=== PATIENT | male | born 1965 | race American Indian/Alaskan Native ===

== ENCOUNTER 2017-07-05 07:50 | Emergency (ER) | payer SELFPAY ==
--- NOTE | 2017-07-05 10:05 | Emergency Department Report ---
HPI - General Chief Complaint: High BP Time Seen by Provider: 07/05/17 09:55 - HPI HPI: 52-year-old -[place] Citizen male comes in for states that his blood pressures is high. Patient reports that his blood pressure was elevated on Wednesday when he first noticed it. He denies any headaches no change in vision no chest pain no nausea no vomiting no fever no chills. His blood pressure in triage is 152/ 90 patient also denies any shortness of breathing. He has no past medical history currently takes no medications and has no known drug allergies ED Past Medical Hx - Past Medical History Previous Medical History?: No - Surgical History Past Surgical History?: No - Social History Smoking Status: Never Smoker Substance Use Type: Alcohol - Medications Home Medications: Home Medications Medication Instructions Recorded Confirmed Last Taken Type Lisinopril [Zestril] 10 mg PO QDAY 30 Days #30 tablet 07/05/17 Unknown Rx ED Review of Systems ROS: Stated complaint: HYPERTENSIVE Other details as noted in HPI Physical Exam - Physical Exam Vital Signs: Vital Signs 07/05/17 08:48 Temperature 98.3 F Pulse Rate 60 Respiratory 16 Rate Blood Pressure 152/90 O2 Sat by Pulse 98 Oximetry Physical Exam: GENERAL APPEARANCE: Well developed, well nourished, in no acute distress. SKIN: Inspection of the skin reveals no rashes, ulcerations or petechiae. HEENT: The sclerae were anicteric and conjunctivae were pink and moist. Extraocular movements were intact and pupils were equal, round, and reactive to light with normal accommodation. External inspection of the ears and nose showed no scars, lesions, or masses. Lips, teeth, and gums showed normal mucosa. The oral mucosa, hard and soft palate, tongue and posterior pharynx were normal. NECK: Supple and symmetric. There was no thyroid enlargement, and no tenderness , or masses were felt. CHEST: Normal AP diameter and normal contour without any kyphoscoliosis. LUNGS: Auscultation of the lungs revealed normal breath sounds without any other adventitious sounds or rubs. CARDIOVASCULAR: There was a regular rate and rhythm without any murmurs, gallops , rubs. The carotid pulses were normal and 2+ bilaterally without bruits. Peripheral pulses were 2+ and symmetric. ABDOMEN: Soft and nontender with normal bowel sounds. The liver span was approximately 5-6 cm in the right midclavicular line by percussion. The liver edge was nontender. The spleen was not palpable. There were no inguinal or umbilical hernias noted. No ascites was noted. LYMPH NODES: No lymphadenopathy was appreciated in the neck, axillae or groin. MUSCULOSKELETAL: Gait was normal. There was no tenderness or effusions noted. Muscle strength and tone were normal. EXTREMITIES: No cyanosis, clubbing or edema. NEUROLOGIC: Alert and oriented x 3. Normal affect. Gait was normal. Normal deep tendon reflexes with no pathological reflexes. Sensation to touch was normal. ED Course Vital Signs 07/05/17 08:48 Temperature 98.3 F Pulse Rate 60 Respiratory 16 Rate Blood Pressure 152/90 O2 Sat by Pulse 98 Oximetry ED Medical Decision Making - Lab Data Result diagrams: 07/05/17 10:13 07/05/17 10:13 - Medical Decision Making Patient has been evaluated by this provider fast track. Discussed the patient will get a baseline labs the CBC CMP. His kidney functions are stable and has no other reason for elevation of blood pressure we will start patient on a low- dose of lisinopril 10 mg daily and have him follow-up with his primary care provider. Patient verbalized understanding. Critical care attestation.: If time is entered above; I have spent that time in minutes in the direct care of this critically ill patient, excluding procedure time. ED Disposition Clinical Impression: Elevated glucose Hypertension Qualifiers: Hypertension type: unspecified Qualified Code(s): I10 - Essential (primary) hypertension Disposition: DC-01 TO HOME OR SELFCARE Is pt being admited?: No Does the pt Need Aspirin: No Condition: Stable Instructions: Hypertension (ED), DASH Eating Plan (ED) Additional Instructions: Please take the lisinopril 10 mg continue to monitor blood pressure is very important free to follow up with your primary care doctor this week. Be aware that her blood sugar with a little elevated so he did need further evaluation which all come be done by her primary care provider. Prescriptions: Lisinopril [Zestril] 10 mg PO QDAY 30 Days #30 tablet Referrals: PRIMARY CARE, [Primary Care Provider] - 3-5 Days Forms: Work/School Release Form(ED)
[2017-07-05 10:28] LABS: Basophils % (Auto) 0.2 % (0.0-1.8); Eosinophils # (Auto) 0.1 K/mm3 (0.0-0.4); Eosinophils % (Auto) 0.7 % (0.0-4.3); Hematocrit 42.8 % (35.5-45.6); Hemoglobin 14.6 gm/dl (11.8-15.2); Lymphocytes # (Auto) 1.7 K/mm3 (1.2-5.4); Lymphocytes % (Auto) 23.9 % (13.4-35.0); Mean Corpuscular HGB Conc 34 % (32-34); Mean Corpuscular Hemoglobin 32 pg (28-32); Mean Corpuscular Volume 93 fl (84-94); Monocytes # (Auto) 0.4 K/mm3 (0.0-0.8); Monocytes % (Auto) 6.1 % (0.0-7.3); Platelet Count 144 K/mm3 (140-440); Red Cell Distribution Width 13.1 % (13.2-15.2)
[2017-07-05 10:45] LABS: Alanine Aminotransferase 23 units/L (7-56); Albumin 4.6 g/dL (3.9-5); BUN/Creatinine Ratio 13; Blood Urea Nitrogen 14 mg/dL (9-20); Calcium 9.3 mg/dL (8.4-10.2); Hemolysis Index 11
[2017-07-05 11:01] VITALS: BP 168/110
== END 2017-07-05 11:01 | disposition home or self-care (01) ==
LOC: ED 07:50
DX: I10 Essential (primary) hypertension (principal); R73.01 Impaired fasting glucose
CPT/HCPCS: 36415; 80053; 85025; 99283

== ENCOUNTER 2019-02-23 21:31 | Emergency (ER) | payer BC ==
[2019-02-23 21:36] VITALS: BP 152/100
--- NOTE | 2019-02-23 21:53 | Event Note ---
ED Screening Note Date of service: 02/23/19 Time: 21:49 ED Screening Note: This is a 53 y.o. M. that presents to the ER with N/D and fever x 2 days. Reports eating a burger at [employer] 2 days ago and sick every since. Reports fever and abdominal pain resolved. + diarrhea Taking pepto bismol. PMH of HTN This initial assessment/diagnostic orders/clinical plan/treatment(s) is/are subject to change based on patients health status, clinical progression and re- assessment by fellow clinical providers in the ED. Further treatment and workup at subsequent clinical providers discretion. Patient/guardian urged not to elope from the ED as their condition may be serious if not clinically assessed and managed. Initial orders include:
[2019-02-23 22:14] LABS: Hemoglobin 15.1 gm/dl (11.8-15.2); Mean Corpuscular HGB Conc 33 % (32-34); Mean Corpuscular Volume 94 fl (84-94); Platelet Count 130 K/mm3 (140-440); Red Blood Count 4.89 M/mm3 (3.65-5.03); Red Cell Distribution Width 13.2 % (13.2-15.2)
[2019-02-23 22:38] LABS: Alanine Aminotransferase 47 units/L (7-56); Albumin 4.4 g/dL (3.9-5); BUN/Creatinine Ratio 11; Blood Urea Nitrogen 14 mg/dL (9-20); Calcium 9.2 mg/dL (8.4-10.2); Hemolysis Index 5
--- NOTE | 2019-02-23 23:19 | Emergency Department Report ---
Vomiting/Diarrhea - HPI Chief Complaint: Nausea/Vomiting/Diarrhea Stated Complaint: DIARRHEA, NAUSEA X'S 2 DAYS Time Seen by Provider: 02/23/19 21:49 Duration: 2 Days Diarrhea Severity: Moderate Pain Severity: None Symptoms: Yes Watery Diarrhea, Yes Fever, Yes Able to Tolerate Fluids, Yes Recent Unusual Foods ([employer]), No Bloody diarrhea, No Recent use of Antibiotics, No Family w/ Similar Symptoms, No Contacts w/ Similar Symptoms, No Rash, No Hematuria, No Recent URI Symptoms Other History: 53-year-old -[place] male presents to the emergency room complaining of diarrhea and fever 2 days. Patient denies any abdominal pain. Patient reports that his last loose stool was prior to arrival. Patient has taken nothing for his symptoms. Patient reports that he had [employer] the other day and after that he started having nausea and diarrhea. Patient denies any nausea at this time. Patient reports he needs a refill on his amlodipine 10 mg. ED Review of Systems ROS: Stated complaint: DIARRHEA, NAUSEA X'S 2 DAYS Other details as noted in HPI Comment: All other systems reviewed and negative Gastrointestinal: diarrhea ED Past Medical Hx - Past Medical History Previous Medical History?: Yes Hx Hypertension: Yes - Surgical History Past Surgical History?: No - Social History Smoking Status: Never Smoker Substance Use Type: None - Medications Home Medications: Home Medications Medication Instructions Recorded Confirmed Last Taken Type Loperamide [Imodium] 2 mg PO Q2HR PRN #4 capsule 02/23/19 Unknown Rx Losartan [Cozaar] 50 mg PO QDAY 2 Days #30 tablet 02/23/19 Unknown Rx amLODIPine [Norvasc] 10 mg PO DAILY 02/23/19 02/23/19 Unknown History amLODIPine [Norvasc] 10 mg PO DAILY #30 tab 02/23/19 Unknown Rx Vomiting Diarrhea Exam - Exam General: Vital signs noted. No distress. Alert and acting appropriately. HEENT: Yes Moist Mucous Membranes, No Pharyngeal Erythema, No Pharyngeal Exudates, No Rhinorrhea, No Conjuctival Injection, No Frontal Tenderness, No Maxillary Tenderness Neck: No Adenopathy, No Rigidity Lungs: Yes Clear Lung Sounds, Yes Good Air Exchange, No Wheezes, No Stridor, No Cough, No Nasal Flaring, No Retractions, No Use of Accessory Muscles Heart exam: Regular: Yes, Murmur: No, Tachycardia: No Abdomen: Tenderness: No, Peritoneal Signs: No, Distention: No, Hyperactive Bowel sounds: No Skin exam: Rash: No, Edema: No, Normal turgor: Yes Neurologic: Alert and oriented, no deficits. Musculoskeletal: Unremarkable. ED Course Vital Signs 02/23/19 21:35 Temperature 98.3 F Pulse Rate 91 H Respiratory 18 Rate Blood Pressure 152/100 O2 Sat by Pulse 96 Oximetry ED Medical Decision Making - Lab Data Result diagrams: 02/23/19 22:01 02/23/19 22:01 - Medical Decision Making 53-year-old -[place] male presents to the emergency room complaining of diarrhea and fever 2 days. Patient denies any abdominal pain. Patient reports that his last loose stool was prior to arrival. Patient has taken nothing for his symptoms. Patient reports that he had [employer] the other day and after that he started having nausea and diarrhea. Patient denies any nausea at this time. Patient reports he needs a refill on his amlodipine 10 mg. Patient will be given Imodium 2 mg now Critical care attestation.: If time is entered above; I have spent that time in minutes in the direct care of this critically ill patient, excluding procedure time. ED Disposition Clinical Impression: Diarrhea Qualifiers: Diarrhea type: unspecified type Qualified Code(s): R19.7 - Diarrhea, unspecified HTN (hypertension) Qualifiers: Hypertension type: essential hypertension Qualified Code(s): I10 - Essential (primary) hypertension Disposition: TO HOME OR SELFCARE Is pt being admited?: No Does the pt Need Aspirin: No Condition: Stable Instructions: Loperamide (By mouth), Acute Diarrhea (ED), Hypertension (ED) Prescriptions: Losartan [Cozaar] 50 mg PO QDAY 2 Days #30 tablet Loperamide [Imodium] 2 mg PO Q2HR PRN #4 capsule PRN Reason: Diarrhea amLODIPine [Norvasc] 10 mg PO DAILY #30 tab Referrals: JAVAD PRECIADO MD [Staff Physician] - 3-5 Days Forms: Work/School Release Form(ED)
[2019-02-23] MEDS ORDERED: LOPERAMIDE 2 MG CAP PO ONE (23:43)
== END 2019-02-24 00:05 | disposition home or self-care (01) ==
LOC: ED 21:31
DX: R19.7 Diarrhea, unspecified (principal); R50.9 Fever, unspecified; R11.0 Nausea; I10 Essential (primary) hypertension; Z79.899 Other long term (current) drug therapy
CPT/HCPCS: 36415; 80053; 85027

== ENCOUNTER 2019-04-24 16:01 | Emergency (ER) | payer OTHER, BC ==
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
[2019-04-24] MEDS ORDERED: HYDROcodone/ACETAMINOPHEN 7.5-325MG TAB PO ONE (20:39)
[2019-04-24] MEDS ORDERED: HYDROcodone/ACETAMINOPHEN 7.5-325MG TAB ONE (20:41)
[2019-04-24 21:19] LABS: Alanine Aminotransferase 38 units/L (7-56); BUN/Creatinine Ratio 11; Blood Urea Nitrogen 12 mg/dL (9-20); Calcium 10.4 mg/dL (8.4-10.2); Hemolysis Index 10
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
[2019-04-24 23:58] VITALS: BP 143/105
== END 2019-04-24 23:55 | disposition home or self-care (01) ==
LOC: ED 16:01
DX: S20.219A Contusion of unspecified front wall of thorax, initial encounter (principal); V49.9XXA Car occupant (driver) (passenger) injured in unspecified traffic accident, initial encounter; Y93.89 Activity, other specified; Y92.410 Unspecified street and highway as the place of occurrence of the external cause; Y99.8 Other external cause status
CPT/HCPCS: 36415; 71275; 80053; 99284; Q9967

== ENCOUNTER 2020-03-21 10:45 | Emergency (ER) | payer BC | END 2020-03-21 10:46 | disposition left against medical advice (07) | LOC: ED 10:45 | DX: I10 Essential (primary) hypertension (principal); Z53.21 Procedure and treatment not carried out due to patient leaving prior to being seen by health care provider ==

== ENCOUNTER 2020-03-21 13:25 | Emergency (ER) | payer BC ==
[2020-03-21 13:50] VITALS: BP 166/98
--- NOTE | 2020-03-21 16:12 | Emergency Department Report ---
ED General Adult HPI - General Chief complaint: Extremity Injury, Lower Stated complaint: HYPERTENSIVE Time Seen by Provider: 03/21/20 16:09 Source: patient Mode of arrival: Ambulatory Limitations: No Limitations - History of Present Illness Initial comments: Patient is a 54-year-old male presents emergency room with complaints of elevated blood pressure that began yesterday. He states that he has not taken his blood pressure medication since April 2019. He states that he just had a feeling that his blood pressure was elevated. He denies any headache, vision changes, numbness, weakness, chest pain, shortness of breath, tingling. He denies any other past medical history. He states he supposed to be taking amlodipine 10 mg daily. He denies any other past medical history. No allergies medications. He states that he went on vacation and drank more than he usually does and believes that is what set off his blood pressure. Severity scale (0 -10): 4 - Related Data Home Medications Medication Instructions Recorded Confirmed Last Taken amLODIPine 10 mg PO DAILY 02/23/19 02/23/19 Unknown Previous Rx's Medication Instructions Recorded Last Taken Type Loperamide [Imodium] 2 mg PO Q2HR PRN #4 capsule 02/23/19 Unknown Rx Losartan [Cozaar] 50 mg PO QDAY 2 Days #30 tablet 02/23/19 Unknown Rx amLODIPine 10 mg PO DAILY #30 tab 02/23/19 Unknown Rx Ibuprofen [Motrin 800 MG tab] 800 mg PO Q8HR PRN #30 tablet 04/24/19 Unknown Rx amLODIPine 10 mg PO DAILY #30 tablet 03/21/20 Unknown Rx Allergies Allergy/AdvReac Type Severity Reaction Status Date / Time No Known Allergies Allergy Verified 04/24/19 20:56 ED Review of Systems ROS: Stated complaint: HYPERTENSIVE Other details as noted in HPI Comment: All other systems reviewed and negative ED Past Medical Hx - Past Medical History Previous Medical History?: Yes Hx Hypertension: Yes - Surgical History Past Surgical History?: No - Social History Smoking Status: Never Smoker Substance Use Type: Alcohol - Medications Home Medications: Home Medications Medication Instructions Recorded Confirmed Last Taken Type Loperamide [Imodium] 2 mg PO Q2HR PRN #4 capsule 02/23/19 Unknown Rx Losartan [Cozaar] 50 mg PO QDAY 2 Days #30 tablet 02/23/19 Unknown Rx amLODIPine 10 mg PO DAILY 02/23/19 02/23/19 Unknown History amLODIPine 10 mg PO DAILY #30 tab 02/23/19 Unknown Rx Ibuprofen [Motrin 800 MG tab] 800 mg PO Q8HR PRN #30 tablet 04/24/19 Unknown Rx amLODIPine 10 mg PO DAILY #30 tablet 03/21/20 Unknown Rx ED Physical Exam - General Limitations: No Limitations General appearance: alert, in no apparent distress - Head Head exam: Present: atraumatic, normocephalic - Eye Eye exam: Present: normal appearance - ENT ENT exam: Present: mucous membranes moist - Respiratory Respiratory exam: Present: normal lung sounds bilaterally. Absent: respiratory distress, wheezes, rales, rhonchi, stridor, chest wall tenderness, accessory muscle use, decreased breath sounds, prolonged expiratory - Cardiovascular Cardiovascular Exam: Present: regular rate, normal rhythm, normal heart sounds. Absent: systolic murmur, diastolic murmur, rubs, gallop - Neurological Exam Neurological exam: Present: alert, oriented X3, CN II-XII intact, normal gait. Absent: motor sensory deficit - Psychiatric Psychiatric exam: Present: normal affect, normal mood - Skin Skin exam: Present: warm, dry, intact ED Course Vital Signs 03/21/20 13:48 Temperature 97.9 F Pulse Rate 78 Respiratory 18 Rate Blood Pressure 166/98 [Right] O2 Sat by Pulse 98 Oximetry ED Medical Decision Making - Medical Decision Making Patient is a 54-year-old male presents emergency room with complaints of elevated blood pressure that began yesterday. He states that he has not taken his blood pressure medication since April 2019. He states that he just had a feeling that his blood pressure was elevated. He denies any headache, vision changes, numbness, weakness, chest pain, shortness of breath, tingling. He denies any other past medical history. He states he supposed to be taking amlodipine 10 mg daily. He denies any other past medical history. No allergies medications. He states that he went on vacation and drank more than he usually does and believes that is what set off his blood pressure. Vitals with elevated blood pressure, otherwise stable. Patient is noncompliant with his blood pressure medication. No abnormality on physical examination as documented in chart. Patient does not have any clinical signs of hypertensive urgency/emergency. Patient given a 1 month refill supply of his home medication. Advised patient Please take medication as prescribed. Please keep a blood pressure log and take this to the primary care doctor. Increase your water intake. Eat a low-sodium/low salt diet. Incorporate 30 to 60 minutes of aerobic exercise daily. Avoid alcohol abuse. Return to the emergency room for any new or worsening symptoms. Critical care attestation.: If time is entered above; I have spent that time in minutes in the direct care of this critically ill patient, excluding procedure time. ED Disposition Clinical Impression: Hypertension Qualifiers: Hypertension type: unspecified Qualified Code(s): I10 - Essential (primary) hypertension Disposition: - TO HOME OR SELFCARE Is pt being admited?: No Does the pt Need Aspirin: No Condition: Stable Instructions: Low Sodium Diet (ED), Hypertension (ED) Additional Instructions: Please take medication as prescribed. Please keep a blood pressure log and take this to the primary care doctor. Increase your water intake. Eat a low- sodium/low salt diet. Incorporate 30 to 60 minutes of aerobic exercise daily. Avoid alcohol abuse. Return to the emergency room for any new or worsening symptoms. Prescriptions: amLODIPine 10 mg PO DAILY #30 tablet Referrals: your, primary care doctor [Other] - 2-3 Days Forms: Work/School Release Form(ED) Time of Disposition: 16:11 Print Language: CHINESE
== END 2020-03-21 17:00 | disposition home or self-care (01) ==
LOC: ED 13:25
DX: I10 Essential (primary) hypertension (principal); Z79.899 Other long term (current) drug therapy
CPT/HCPCS: 99281

== ENCOUNTER 2020-05-03 09:11 | Emergency (ER) | payer BC ==
[2020-05-03 09:14] VITALS: BP 182/105
--- NOTE | 2020-05-03 09:22 | Emergency Department Report ---
ED Medical Clearance HPI - General Chief complaint: High BP Stated complaint: HBP Source: patient Mode of arrival: Ambulatory - History of Present Illness Initial comments: 54-year-old -[place] male presents to the emergency room concern for elevated blood pressure and not feeling so hot. Patient states has been out of his blood pressure medicine for a couple of weeks. He denies any headache no nausea no vomiting no chest pain or shortness of breath. Alledged Intoxication: No Compliant with Home Medications: No (Ran out of medication) Associated Symptoms: denies: chest pain, shortness of breath, palpitations, diaphoresis, cough, fever/chills, headaches, rash, seizure Treatments Prior to Arrival: none Home medications: Previous Rx's Medication Instructions Recorded Last Taken Type Loperamide [Imodium] 2 mg PO Q2HR PRN #4 capsule 02/23/19 Unknown Rx amLODIPine 10 mg PO DAILY #30 tab 02/23/19 Unknown Rx Ibuprofen [Motrin 800 MG tab] 800 mg PO Q8HR PRN #30 tablet 04/24/19 Unknown Rx amLODIPine 10 mg PO DAILY #30 tablet 03/21/20 Unknown Rx Losartan [Cozaar] 50 mg PO QDAY #90 tablet 05/03/20 Unknown Rx amLODIPine 10 mg PO DAILY #90 tab 05/03/20 Unknown Rx Allergies/Adverse reactions: Allergies Allergy/AdvReac Type Severity Reaction Status Date / Time No Known Allergies Allergy Verified 05/03/20 09:12 ED Review of Systems ROS: Stated complaint: HBP Other details as noted in HPI Comment: All other systems reviewed and negative ED Past Medical Hx - Past Medical History Hx Hypertension: Yes - Surgical History Past Surgical History?: No - Social History Smoking Status: Never Smoker Substance Use Type: Alcohol - Medications Home Medications: Home Medications Medication Instructions Recorded Confirmed Last Taken Type Loperamide [Imodium] 2 mg PO Q2HR PRN #4 capsule 02/23/19 Unknown Rx amLODIPine 10 mg PO DAILY #30 tab 02/23/19 Unknown Rx Ibuprofen [Motrin 800 MG tab] 800 mg PO Q8HR PRN #30 tablet 04/24/19 Unknown Rx amLODIPine 10 mg PO DAILY #30 tablet 03/21/20 Unknown Rx Losartan [Cozaar] 50 mg PO QDAY #90 tablet 05/03/20 Unknown Rx amLODIPine 10 mg PO DAILY #90 tab 12/04/20 Unknown Rx ED Physical Exam - General Limitations: No Limitations General appearance: alert, in no apparent distress - Head Head exam: Present: atraumatic, normocephalic - Eye Eye exam: Present: normal appearance - ENT ENT exam: Present: mucous membranes moist - Neck Neck exam: Present: normal inspection, full ROM - Respiratory Respiratory exam: Present: normal lung sounds bilaterally. Absent: chest wall tenderness, accessory muscle use - Cardiovascular Cardiovascular Exam: Present: regular rate - Back Exam Back exam: Present: normal inspection - Neurological Exam Neurological exam: Present: alert, oriented X3, normal gait - Psychiatric Psychiatric exam: Present: normal affect, normal mood - Skin Skin exam: Present: warm, dry, intact, normal color. Absent: rash ED Course Vital Signs 05/03/20 09:12 Temperature 97.1 F L Pulse Rate 83 Respiratory 18 Rate Blood Pressure 182/105 O2 Sat by Pulse 98 Oximetry ED Medical Decision Making - Medical Decision Making 54-year-old -[place] male presents to the emergency room concern for elevated blood pressure and not feeling so hot. Patient states has been out of his blood pressure medicine for a couple of weeks. He denies any headache no nausea no vomiting no chest pain or shortness of breath. Prescription for Norvasc 10 mg daily and Cozaar 50 mg daily. I discussed with patient in depth that he needs to follow-up with Dr. Kristopher Yu. ED Disposition Clinical Impression: Hypertension Disposition: DC-01 TO HOME OR SELFCARE Is pt being admited?: No Does the pt Need Aspirin: No Condition: Stable Instructions: Hypertension (ED), Preventing Hypertension Additional Instructions: Please take medications as prescribed. Follow-up with Dr. Castro. Prescriptions: amLODIPine 10 mg PO DAILY #90 tab Losartan [Cozaar] 50 mg PO QDAY #90 tablet Referrals: BURT MORRIS MD [Staff Physician] - 3-5 Days Forms: Work/School Release Form(ED)
== END 2020-05-03 09:25 | disposition home or self-care (01) ==
LOC: ED 09:11
DX: I10 Essential (primary) hypertension (principal); Z79.899 Other long term (current) drug therapy
CPT/HCPCS: 99281

== ENCOUNTER 2020-07-19 07:06 | Emergency (ER) | payer BC ==
[2020-07-19 07:15] VITALS: BP 159/102
--- NOTE | 2020-07-19 07:15 | Emergency Department Report ---
ED General Adult HPI - General Stated complaint: LT KNEE SWOLLEN PUI?: No Time Seen by Provider: 07/19/20 07:11 - History of Present Illness Initial comments: 55-year-old male presents with chief complaint of left knee pain, gradual onset over the past 3 days. According to the patient he was at work on Wednesday when he was moving a shelf and a box fell down hitting him on the knee. He states initially it did not hurt very much and he was able to continue doing his job but yesterday the pain began to increase. He reports associated swelling though states that has improved after icing the knee. Pain is worse with movement /ambulation, better with rest. Rated as moderate. No other injuries or complaints. No numbness or weakness. - Related Data Previous Rx's Medication Instructions Recorded Last Taken Type Loperamide [Imodium] 2 mg PO Q2HR PRN #4 capsule 02/23/19 Unknown Rx amLODIPine 10 mg PO DAILY #30 tab 02/23/19 Unknown Rx Ibuprofen [Motrin 800 MG tab] 800 mg PO Q8HR PRN #30 tablet 04/24/19 Unknown Rx amLODIPine 10 mg PO DAILY #30 tablet 03/21/20 Unknown Rx Losartan [Cozaar] 50 mg PO QDAY #90 tablet 05/03/20 Unknown Rx amLODIPine 10 mg PO DAILY #90 tab 05/03/20 Unknown Rx Acetaminophen/Codeine [Tylenol 1 tab PO Q6H PRN #12 tab 07/19/20 Unknown Rx /Codeine # 3 tab] Naproxen [Naprosyn] 500 mg PO BID #20 tablet 07/19/20 Unknown Rx Allergies Allergy/AdvReac Type Severity Reaction Status Date / Time No Known Allergies Allergy Verified 05/03/20 09:12 ED Review of Systems ROS: Stated complaint: LT KNEE SWOLLEN Other details as noted in HPI Comment: All other systems reviewed and negative Musculoskeletal: as per HPI ED Past Medical Hx - Past Medical History Hx Hypertension: Yes - Social History Smoking Status: Never Smoker Substance Use Type: Alcohol - Medications Home Medications: Home Medications Medication Instructions Recorded Confirmed Last Taken Type Loperamide [Imodium] 2 mg PO Q2HR PRN #4 capsule 02/23/19 Unknown Rx amLODIPine 10 mg PO DAILY #30 tab 02/23/19 Unknown Rx Ibuprofen [Motrin 800 MG tab] 800 mg PO Q8HR PRN #30 tablet 04/24/19 Unknown Rx amLODIPine 10 mg PO DAILY #30 tablet 03/21/20 Unknown Rx Losartan [Cozaar] 50 mg PO QDAY #90 tablet 05/03/20 Unknown Rx amLODIPine 10 mg PO DAILY #90 tab 05/03/20 Unknown Rx Acetaminophen/Codeine [Tylenol 1 tab PO Q6H PRN #12 tab 07/19/20 Unknown Rx /Codeine # 3 tab] Naproxen [Naprosyn] 500 mg PO BID #20 tablet 07/19/20 Unknown Rx ED Physical Exam - General Limitations: No Limitations General appearance: alert, in no apparent distress - Head Head exam: Present: atraumatic, normocephalic - Extremities Exam Extremities exam: Present: tenderness, other (Mild swelling to the left knee with tenderness over the patella and patellar tendon, normal pulses distally) - Back Exam Back exam: Present: normal inspection, full ROM - Neurological Exam Neurological exam: Present: alert, oriented X3 - Psychiatric Psychiatric exam: Present: normal affect, normal mood - Skin Skin exam: Present: warm, dry, intact ED Course Vital Signs 07/19/20 07:12 Temperature 98.2 F Pulse Rate 78 Respiratory 16 Rate Blood Pressure 159/102 O2 Sat by Pulse 100 Oximetry ED Medical Decision Making - Radiology Data Radiology results: report reviewed Soft tissue swelling, no fracture of left knee - Medical Decision Making Patient presents with left knee pain after an injury. On my exam reproducible pain over the patella and patellar tendon. Remainder of lower extremity exam is normal, neurovascular intact. X-ray pending. Follow-up Ortho. Knee brace given. - Differential Diagnosis Contusion, fracture, sprain Critical care attestation.: If time is entered above; I have spent that time in minutes in the direct care of this critically ill patient, excluding procedure time. ED Disposition Clinical Impression: Left knee pain Qualifiers: Chronicity: acute Qualified Code(s): M25.562 - Pain in left knee Disposition: TO HOME OR SELFCARE Is pt being admited?: No Condition: Stable Instructions: Acute Knee Pain, Adult Prescriptions: Naproxen [Naprosyn] 500 mg PO BID #20 tablet Acetaminophen/Codeine [Tylenol /Codeine # 3 tab] 1 tab PO Q6H PRN #12 tab PRN Reason: Pain , Severe (7-10) Referrals: BECCA LOREDO MD [Staff Physician] - 3-5 Days Time of Disposition: 08:11
--- NOTE | 2020-07-19 08:04 | XRay Report ---
Left knee-3 views INDICATION: l knee pain. COMPARISON: None. IMPRESSION: Generalized soft tissue swelling along the anterior aspect of the knee with no obvious s oft tissue wound or radiopaque foreign body identified. No acute fracture or malalignment. Mild medi al compartment DJD. Signer Name: Noe France MD Signed: 07/19/2020 7:59 AM Workstation Name: [id number]
== END 2020-07-19 08:21 | disposition home or self-care (01) ==
LOC: ED 07:06
DX: M25.562 Pain in left knee (principal); I10 Essential (primary) hypertension; Z79.899 Other long term (current) drug therapy
CPT/HCPCS: 99283

== ENCOUNTER 2020-09-05 05:57 | Emergency (ER) | payer BC ==
[2020-09-05 06:30] VITALS: BP 163/98
--- NOTE | 2020-09-05 07:44 | Emergency Department Report ---
ED Extremity Problem HPI - General Chief complaint: Extremity Injury, Lower Stated complaint: LEFT KNEE INJURY/PAIN Time Seen by Provider: 09/05/20 07:35 Source: patient Mode of arrival: Ambulatory Limitations: Physical Limitation - History of Present Illness Initial comments: 55-year-old male presents to the ER today with complaints of left knee pain. Patient states that about 1/2 months ago case of liquid coffee fell onto his left knee. Patient states that he was seen and evaluated here. Had x-rays which showed no dislocation or fractures. He was given referral to Dr. Skelton whom he followed up with. He states that Dr. Skelton during the effusion that he had in the knee. He was off for about a month and then felt better enough to return to work 2 weeks ago. Patient states that this past Wednesday when he woke up his left knee was stiff, painful and he was having difficulty walking. He reports mild swelling to the knee. He states that he has an appointment Dr. Skelton this coming Wednesday but he took 3 days off, and his job is requiring him to have a work note. He denies any injury recently. He denies any bruising or erythema. He denies calf pain, chest pain or SOB. Patient also requesting refill on his BP meds. He states he has been out of his amlodipine for couple days. MD Complaint: joint swelling, joint paint, other (Left knee pain ) -: Gradual - Related Data Previous Rx's Medication Instructions Recorded Last Taken Type Loperamide [Imodium] 2 mg PO Q2HR PRN #4 capsule 02/23/19 Unknown Rx amLODIPine 10 mg PO DAILY #30 tab 02/23/19 Unknown Rx Losartan [Cozaar] 50 mg PO QDAY #90 tablet 05/03/20 Unknown Rx amLODIPine 10 mg PO DAILY #90 tab 05/03/20 Unknown Rx Acetaminophen/Codeine [Tylenol 1 tab PO Q6H PRN #12 tab 07/19/20 Unknown Rx /Codeine # 3 tab] Naproxen [Naprosyn] 500 mg PO BID #20 tablet 07/19/20 Unknown Rx Ibuprofen [Motrin 800 MG tab] 800 mg PO Q8HR PRN #30 tablet 09/05/20 Unknown Rx amLODIPine 10 mg PO DAILY #30 tablet 09/05/20 Unknown Rx Allergies Allergy/AdvReac Type Severity Reaction Status Date / Time No Known Allergies Allergy Verified 09/05/20 06:25 ED Review of Systems ROS: Stated complaint: LEFT KNEE INJURY/PAIN Other details as noted in HPI Comment: All other systems reviewed and negative Constitutional: denies: chills, fever Eyes: denies: eye pain, eye discharge, vision change ENT: denies: ear pain, throat pain, dental pain, hearing loss, epistaxis Respiratory: denies: cough, shortness of breath, SOB with exertion, SOB at rest, stridor, wheezing Cardiovascular: denies: chest pain, palpitations, dyspnea on exertion, edema, syncope, paroxysmal nocturnal dyspnea Endocrine: no symptoms reported Gastrointestinal: denies: abdominal pain, nausea, vomiting, diarrhea, constipation, hematemesis, melena, hematochezia Musculoskeletal: joint swelling, arthralgia Neurological: denies: headache, weakness, numbness, paresthesias, confusion, abnormal gait, vertigo Psychiatric: denies: anxiety, depression, auditory hallucinations, visual hallucinations, homicidal thoughts, suicidal thoughts Hematological/Lymphatic: denies: easy bleeding, easy bruising ED Past Medical Hx - Past Medical History Previous Medical History?: No Hx Hypertension: Yes - Surgical History Past Surgical History?: No - Social History Smoking Status: Never Smoker Substance Use Type: None - Medications Home Medications: Home Medications Medication Instructions Recorded Confirmed Last Taken Type Loperamide [Imodium] 2 mg PO Q2HR PRN #4 capsule 02/23/19 Unknown Rx amLODIPine 10 mg PO DAILY #30 tab 02/23/19 Unknown Rx Losartan [Cozaar] 50 mg PO QDAY #90 tablet 05/03/20 Unknown Rx amLODIPine 10 mg PO DAILY #90 tab 05/03/20 Unknown Rx Acetaminophen/Codeine [Tylenol 1 tab PO Q6H PRN #12 tab 07/19/20 Unknown Rx /Codeine # 3 tab] Naproxen [Naprosyn] 500 mg PO BID #20 tablet 07/19/20 Unknown Rx Ibuprofen [Motrin 800 MG tab] 800 mg PO Q8HR PRN #30 tablet 09/05/20 Unknown Rx amLODIPine 10 mg PO DAILY #30 tablet 09/05/20 Unknown Rx ED Physical Exam - General Limitations: Physical Limitation General appearance: alert, in no apparent distress - Head Head exam: Present: atraumatic, normocephalic, normal inspection - Respiratory Respiratory exam: Present: normal lung sounds bilaterally. Absent: respiratory distress - Cardiovascular Cardiovascular Exam: Present: regular rate, normal rhythm, normal heart sounds - Extremities Exam Extremities exam: Present: normal inspection, full ROM. Absent: pedal edema, calf tenderness - Expanded Lower Extremity Exam Left Knee exam: Present: full ROM, tenderness, full knee extension. Absent: normal inspection, swelling, abrasion, laceration, ecchymosis, deformity, crepidus, dislocation, erythema, effusion Neuro vascular tendon exam: Present: no vascular compromise. Absent: motor deficit, sensory deficit - Back Exam Back exam: Present: normal inspection - Neurological Exam Neurological exam: Present: alert, oriented X3, CN II-XII intact, normal gait - Psychiatric Psychiatric exam: Present: normal affect, normal mood - Skin Skin exam: Present: intact ED Course Vital Signs 09/05/20 06:27 Temperature 98.3 F Pulse Rate 89 Respiratory 18 Rate Blood Pressure 163/98 O2 Sat by Pulse 98 Oximetry Critical care attestation.: If time is entered above; I have spent that time in minutes in the direct care of this critically ill patient, excluding procedure time. ED Disposition Clinical Impression: Knee pain, left, Medication refill Disposition: - TO HOME OR SELFCARE Is pt being admited?: No Does the pt Need Aspirin: No Condition: Stable Instructions: Acute Knee Pain, Adult, Medicine Refill at the Emergency Department Additional Instructions: Continue to rest, and elevate knee. Take the motrin as prescribed. Take your blood pressure as prescribed. Keep your appointment with Dr Costa granados wednesday. Return to ED if worse. Prescriptions: amLODIPine 10 mg PO DAILY #30 tablet Ibuprofen [Motrin 800 MG tab] 800 mg PO Q8HR PRN #30 tablet PRN Reason: Pain , Severe (7-10) Referrals: PRIMARY CARE, [Primary Care Provider] - 3-5 Days Forms: Work/School Release Form(ED) Time of Disposition: 07:46
== END 2020-09-05 08:04 | disposition home or self-care (01) ==
LOC: ED 05:57
DX: M25.562 Pain in left knee (principal); I10 Essential (primary) hypertension; Z76.0 Encounter for issue of repeat prescription; Z79.899 Other long term (current) drug therapy
CPT/HCPCS: 99282

== ENCOUNTER 2020-10-23 06:59 | Outpatient (CLI) | payer BC ==
[2020-10-23 07:23] LABS: Basophils % (Auto) 0.3 % (0.0-1.8); Eosinophils # (Auto) 0.1 K/mm3 (0.0-0.4); Eosinophils % (Auto) 1.7 % (0.0-4.3); Hematocrit 41.6 % (35.5-45.6); Hemoglobin 14.1 gm/dl (11.8-15.2); Lymphocytes # (Auto) 1.5 K/mm3 (1.2-5.4); Lymphocytes % (Auto) 22.3 % (13.4-35.0); Mean Corpuscular HGB Conc 34 % (32-34); Mean Corpuscular Volume 97 fl (84-94); Monocytes # (Auto) 0.5 K/mm3 (0.0-0.8); Monocytes % (Auto) 7.2 % (0.0-7.3); Platelet Count 155 K/mm3 (140-440); Red Blood Count 4.29 M/mm3 (3.65-5.03); Red Cell Distribution Width 13.6 % (13.2-15.2)
[2020-10-23 07:45] LABS: Alanine Aminotransferase 27 units/L (7-56); Albumin 4.2 g/dL (3.9-5); BUN/Creatinine Ratio 12; Blood Urea Nitrogen 13 mg/dL (9-20); Calcium 8.9 mg/dL (8.4-10.2); Chol/HDL Ratio 5.73 %; HDL Cholesterol 38 mg/dL (40-59); Hemolysis Index 16; LDL Cholesterol,Direct 162 mg/dL (50-130)
[2020-10-27 12:49] LABS: Vitamin D, 25-OH, D2 <4 ng/mL
== END 2020-10-23 07:00 | disposition home or self-care (01) ==
LOC: LAB 06:59
PROVIDERS: ATTEND Internal Medicine
DX: Z13.220 Encounter for screening for lipoid disorders (principal); Z13.1 Encounter for screening for diabetes mellitus; Z00.00 Encounter for general adult medical examination without abnormal findings; Z13.29 Encounter for screening for other suspected endocrine disorder; E55.9 Vitamin D deficiency, unspecified; Z12.5 Encounter for screening for malignant neoplasm of prostate; R25.2 Cramp and spasm
CPT/HCPCS: 36415; 80053; 80061; 82306; 82607; 83036; 83735; 84100; 84153; 84443; 85025

== ENCOUNTER 2021-02-05 08:59 | Outpatient (CLI) | payer BC ==
[2021-02-05 09:43] LABS: Chol/HDL Ratio 5.44 %
== END 2021-02-05 09:00 | disposition home or self-care (01) ==
LOC: LAB 08:59
PROVIDERS: ATTEND Internal Medicine
DX: E78.5 Hyperlipidemia, unspecified (principal)
CPT/HCPCS: 36415; 80061

== ENCOUNTER 2021-03-04 08:06 | Outpatient (CLI) | payer BC ==
--- NOTE | 2021-03-04 16:27 | Magnetic Resonance Report ---
MRI RIGHT FORELEG WITHOUT CONTRAST HISTORY: Localized swelling/mass COMPARISON: None. TECHNIQUE: Routine non-contrast MRI of the left forearm obtained. CONTRAST: None. FINDINGS: Bone Marrow: No significant abnormality. Muscles: No significant abnormality. Subcutaneous soft tissues: Well encapsulated hyperintense T2/isointense T1 cystic mass within the sub cutaneous soft tissues anterior lateral mid foreleg with some hypointense thin septations and hypoint ense T2 foci within it. The lesion measures 1.9 cm in maximum diameter. No surrounding subcutaneous s oft tissue edema or inflammation. Additional Findings: None. IMPRESSION: 1. Exophytic complex cystic mass within the subcutaneous soft tissues/dermis/epidermis of right mid l ateral foreleg. The lesion is nonspecific. Favor epidermoid inclusion cyst. Other differential consid erations would include atypical myxoid tumor or acute amount of fibrosarcoma protuberans. The lesion is easily amenable to surgical resection and can be shelled out easily with well defined capsule [email or web address] Signer Name: Ritchie Warner MD Signed: 03/04/2021 4:22 PM Workstation Name: [id number]
== END 2021-03-04 08:07 | disposition home or self-care (01) ==
LOC: MRI 08:06
PROVIDERS: ATTEND Orthopaedic Surgery
DX: R22.41 Localized swelling, mass and lump, right lower limb (principal)

== ENCOUNTER 2021-03-27 06:19 | Day surgery (SDC) | payer BC ==
[~2021-03-27 06:19] MED LIST: ACETAMINOPHEN 500 MG TAB PO SCH; BACTERIOSTATIC SODIUM CHLORIDE 0.9% 30 ML VIAL INFILTRATI ONE; LACTATED RINGERS 1,000 ML IV SCH; MIDAZOLAM 2 MG/2 ML INJ IV NR; NEOMY 40 MG/POLYMYXIN B 200,000 UNITS/ML (GU) AMPULE IR ONE; SODIUM CHLORIDE 0.9% IRR 1,500 ML BOTTLE IR ONE; ceFAZolin/Water 2 GM/20 ML 2 GM/20 ML SYRINGE IV NR
[2021-03-27] MEDS ORDERED: NEOMY 40 MG/POLYMYXIN B 200,000 UNITS/ML (GU) AMPULE IR ONE ×2 (07:10→08:34)
[2021-03-27] MEDS ORDERED: LIDOCAINE MPF (2%) 20 MG/1 ML VIAL 5 ML ONE (07:11)
[2021-03-27] MEDS ORDERED: propofoL 200 MG/20 ML VIAL IV ONE ×2 (07:11→08:19)
[2021-03-27] MEDS ORDERED: amLODIPine 10 MG TAB PO SCH (07:21)
--- NOTE | 2021-03-27 07:28 | Anesthesia Consultation ---
Anesthesia Consult and Med Hx Date of service: 03/27/21 - Airway Anesthetic Teeth Evaluation: Good ROM Head & Neck: Adequate Mental/Hyoid Distance: Adequate Mallampati Class: Class II Intubation Access Assessment: Probably Good - Pre-Operative Health Status ASA Pre-Surgery Classification: ASA2 Proposed Anesthetic Plan: MAC - Pre-Anesthesia Comment Pre-Anesthesia Comments: Discussed MAC vs GA. Patient requests MAC but is agreeable to GA if necessary. - Pulmonary Hx Smoking: No Hx Respiratory Symptoms: No Hx Sleep Apnea: No (HIGH ON NIKOLE PRESCREEN) - Cardiovascular System Hx Hypertension: Yes (took amlodipine this morning) Hx Heart Attack/AMI: No - Central Nervous System CVA: No - Endocrine Hx Renal Disease: No Hx Liver Disease: No Hx Insulin Dependent Diabetes: No Hx Non-Insulin Dependent Diabetes: No Hx Thyroid Disease: No - Hematic Hx Anemia: No Hx Sickle Cell Disease: No - Other Systems Hx Obesity: No - Additional Comments Anesthesia Medical History Comments: No prior GA. No FHx anesthetic complications.
[2021-03-27] MEDS ORDERED: ONDANSETRON 4 MG/2 ML INJ IV PRN (07:29)
[2021-03-27] MEDS ORDERED: HYDROcodone/ACETAMINOPHEN 5-325 MG TAB PO PRN (07:29)
[2021-03-27] MEDS ORDERED: fentaNYL 100 MCG/2 ML INJ IV PRN (07:29)
--- NOTE | 2021-03-27 07:29 | Anesthesia Day of Surgery ---
Anesthesia Day of Surgery - Day of Surgery Patient Examined: Yes Patient H&P Reviewed: Yes Patient is NPO: Yes
[2021-03-27] MEDS ORDERED: fentaNYL 100 MCG/2 ML INJ ONE (07:30)
[2021-03-27] MEDS ORDERED: BUPIVACAINE/PF (0.25%) 2.5 MG/ML 30 ML VIAL INFILTRATI ONE ×2 (08:34)
[2021-03-27] MEDS ORDERED: SODIUM CHLORIDE 0.9% IRR 1,500 ML BOTTLE IR ONE (08:34)
--- NOTE | 2021-03-27 09:20 | Procedure Note ---
Date of procedure: 03/27/21 Pre-op diagnosis: Mass right leg Post-op diagnosis: same Procedure: Excision of mass right leg Procedure Patient was brought to the OR placed on the OR table in supine position following induction with MAC anesthesia the patient's right lower extremity was prepped and draped in the usual sterile manner a timeout procedure was done to identify the patient and the correct operative site next the leg was exsanguinated followed by inflation of the pneumatic tourniquet to 300 mmHg. A transverse incision was made over the mass this was then taken down sharply through skin subcutaneous tissue using a combination of 15 blade and tenotomy scissors the mass was shelled out from its surrounding soft tissue it did not appear to be adherent to any deep structures and was thus given to our scrub nurse to be sent to pathology. Following this the wound was then copiously irrigated and was closed in a standard routine fashion postop dressings were applied patient tolerated procedure there were no complications Anesthesia: MAC, local Surgeon: BECCA LOREDO (Itz Garza, 1st assist) Estimated blood loss: minimal Pathology: list (Soft tissue mass right leg) Specimen disposition: to lab Condition: stable Disposition: PACU
[2021-03-27 09:46] VITALS: BP 147/81
--- NOTE | 2021-03-27 09:50 | Post Anesthesia Evaluation ---
- Post Anesthesia Evaluation Patient Participated: Yes Airway Patent: Yes Stable Respiratory Function: Yes Nausea/Vomiting: No Temp > 96.8F: Yes Pain Manageable: Yes Adequeate Hydration: Yes Anesthesia Complications: No
== END 2021-03-27 10:15 | disposition home or self-care (01) ==
LOC: OR 06:19
PROVIDERS: ATTEND Orthopaedic Surgery
DX: R22.41 Localized swelling, mass and lump, right lower limb (principal); L72.11 Pilar cyst; Z20.822 Contact with and (suspected) exposure to COVID-19; I10 Essential (primary) hypertension; Z79.899 Other long term (current) drug therapy; Z98.890 Other specified postprocedural states
CPT/HCPCS: 11403; 88304; J0690; J2250; J2704; J3010; J7120; U0003; 88307

== ENCOUNTER 2021-06-19 06:55 | Outpatient (CLI) | payer BC ==
[2021-06-19 07:40] LABS: Chol/HDL Ratio 5.35 %
== END 2021-06-19 06:56 | disposition home or self-care (01) ==
LOC: LAB 06:55
PROVIDERS: ATTEND Internal Medicine
DX: E78.5 Hyperlipidemia, unspecified (principal)
CPT/HCPCS: 36415; 80061

== ENCOUNTER 2021-11-14 06:25 | Outpatient (CLI) | payer BC ==
[2021-11-14 06:52] LABS: Basophils % (Auto) 0.5 % (0.0-1.8); Eosinophils # (Auto) 0.1 K/mm3 (0.0-0.4); Eosinophils % (Auto) 1.3 % (0.0-4.3); Hematocrit 42.1 % (35.5-45.6); Hemoglobin 14.3 gm/dl (11.8-15.2); Lymphocytes # (Auto) 1.8 K/mm3 (1.2-5.4); Lymphocytes % (Auto) 23.7 % (13.4-35.0); Mean Corpuscular HGB Conc 34 % (32-34); Mean Corpuscular Volume 93 fl (84-94); Monocytes # (Auto) 0.5 K/mm3 (0.0-0.8); Monocytes % (Auto) 6.3 % (0.0-7.3); Platelet Count 144 K/mm3 (140-440); Red Blood Count 4.51 M/mm3 (3.65-5.03); Red Cell Distribution Width 13.2 % (13.2-15.2)
[2021-11-14 07:16] LABS: Alanine Aminotransferase 38 units/L (7-56); Albumin 4.7 g/dL (3.9-5); BUN/Creatinine Ratio 12; Blood Urea Nitrogen 17 mg/dL (9-20); Calcium 9.5 mg/dL (8.4-10.2); Chol/HDL Ratio 6.23 %; HDL Cholesterol 39 mg/dL (40-59); Hemolysis Index 10; LDL Cholesterol,Direct 178 mg/dL (50-130)
== END 2021-11-14 06:26 | disposition home or self-care (01) ==
LOC: LAB 06:25
PROVIDERS: ATTEND Internal Medicine
DX: Z00.00 Encounter for general adult medical examination without abnormal findings (principal); E78.5 Hyperlipidemia, unspecified; R73.9 Hyperglycemia, unspecified; E55.9 Vitamin D deficiency, unspecified; I10 Essential (primary) hypertension; R53.83 Other fatigue
CPT/HCPCS: 36415; 80053; 80061; 82306; 83036; 84443; 85025